=== PATIENT | male | born 1990 | race Caucasian/White ===

== ENCOUNTER → 2018-12-02 | Outpatient (CLI) | payer BC ==
--- NOTE | 2018-12-02 09:12 | RADIOLOGY IMAGING REPORT ---
FACILITY: [facility] - [place] PATIENT NAME: Jairon Hyawood : 1990 MR: [id number] V: [id number] EXAM DATE: ORDERING PHYSICIAN: MERRILL SHEA TECHNOLOGIST: Location: [facility] [place] Patient: Jairon Haywood : 1990 Visit/Account:[id number] Date of Sevice: 12/02/2018 ABDOMEN COMPLETE COMPARISON: None. HISTORY: Elevated total bilirubin and triglycerides, pulsatile mass in the mid abdomen TECHNIQUE: Fatima scale ultrasound of the abdomen was performed. FINDINGS: LIVER: Normal size, 14.4 cm craniocaudally, and morphology with normal homogeneous echotexture. No appreciable masses. A single color Doppler image demonstrates hepatopetal flow in the main portal v ein. GALLBLADDER: Normal size. No gallstones, wall thickening or pericholecystic fluid. Sonographic Mur phy's sign was reportedly negative. BILE DUCTS: No intrahepatic or extrahepatic bile duct dilatation. Common bile duct measures 3 mm. PANCREAS: Normal. KIDNEYS: Unremarkable. No mass, obstruction, or obvious calculus. The right kidney measures at leas t 10.0 cm bipolar length, lower pole obscured by shadowing. Normal right kidney intrarenal resistive index of 0.65.. The left kidney measures about 10.4 cm bipolar length. Its lower pole was also obs cured by bowel gas shadowing. Normal left kidney intrarenal resistive index of 0.61. SPLEEN: Normal size, 12.3 cm maximally, with normal homogeneous echotexture. AORTA/VASCULAR: The visualized proximal aorta and IVC are patent. Visualized proximal abdominal aort a is normal caliber at 1.4 cm in the distal aorta is normal caliber at 1.5 cm AP diameter. OTHER: No ascites or adenopathy seen. IMPRESSION: Normal abdominal ultrasound. Visualized aorta is normal in size without visible aneurysm. The lower p oles of the kidneys could not be seen because of bowel gas shadowing. Report Dictated By: Phoenix Iverson at 12/02/2018 9:06 AM Report E-Signed By: Phoenix Iverson at 12/02/2018 9:08 AM WSN:[id number]
== END ==
LOC: US 08:00
PROVIDERS: ATTEND Family Medicine
DX: R79.0 Abnormal level of blood mineral (principal)
CPT/HCPCS: 76700

== ENCOUNTER → 2019-02-14 | Outpatient (REF) | payer BC ==
[2019-02-14 13:11] LABS: PLATELET COUNT, AUTOMATED 147 K/uL (150-450)
== END ==
PROVIDERS: ATTEND Family Medicine
DX: K92.1 Melena (principal)
CPT/HCPCS: 82040; 82247; 82310; 82374; 82435; 82565; 82947; 84075; 84132; 84155; 84295; 84450; 84460; 84520; 85025; 86140